=== PATIENT | female | born 1985 | race Caucasian/White ===

== ENCOUNTER 2024-04-27 16:42 | Emergency (ER) | payer SELFPAY ==
[2024-04-27] MEDS: Ibuprofen 600 MG Tab PO ONE (17:09)
== END 2024-04-27 20:34 | disposition home or self-care (01) ==
LOC: MW.ED 16:42
DX: S43.401A Unspecified sprain of right shoulder joint, initial encounter (principal); S00.93XA Contusion of unspecified part of head, initial encounter; Z75.8 Other problems related to medical facilities and other health care; Z79.899 Other long term (current) drug therapy; W01.0XXA Fall on same level from slipping, tripping and stumbling without subsequent striking against object, initial encounter
CPT/HCPCS: 70450; 73030; 99285; A9270